=== PATIENT | female | born 1970 | race African-American/Black ===

== ENCOUNTER 2018-02-03 16:58 | Inpatient (IN) | payer MEDICARE ==
[~2018-02-03] VITALS: Ht 175.3 cm; Wt 94.3 kg
[~2018-02-03 16:58] MED LIST: COLACE100 MG ORAL; CYCLOBENZAPRINE10 MG ORAL; CYMBALTA60 MG ORAL; Cyclobenzaprine 10mg Tab ORAL PRN; LYRICA200 MG ORAL; METHADONE H5 MG/5 M1 PO; METHADONE HCL5 MG PO; NORCO 5-325 TA1 EACH ORAL; SOMA350 MG PO; TYLENOL WITH C1 EAC1 ORAL
[2018-02-03 17:37] VITALS: BP 173/124
--- NOTE | 2018-02-03 17:38 | Emergency Room Report ---
History of Present Illness General Chief Complaint: Back Pain-No Injury Present Illness HPI 47 yo female patient presents to ER complaining of breakthrough back pain x1 week. Patient denies hx of trauma or accident recently. Reports needed to use walker for the past week; unable to walk standing up, pain relief with hunching over. Reports pain radiates down left leg to knee. Reports sees physical therapy but was unable to drive and missed appointments past week; states pain symptoms worsened at that time. Reports hx of chronic back pain; seen by pain management and treated with [place] 7.5/325mg and Soma; reports took 2 [place] and 1 Soma this morning for pain. Reports hx of two back surgeries in 2010; does not recall reason for surgeries; reports possible "thye cut something out and put rods in". Denies weight loss. Denies IV drug use. Denies bowel or bladder incontinence or retention. Denies . Denies nausea, vomiting, chest pain, SOB, abdominal pain, dysuria, hematuria. Denies hx of HTN or cardiovascular disease. (Adams Brink P.A.) Allergies: Coded Allergies: No Known Allergies (Unverified , 05/07/15) Patient History Past Medical History: see triage record Last Menstrual Period: 3 weeks ago Reviewed Nursing Documentation: PMH: Agreed, PSxH: Agreed (Adams Brink P.A.) Nursing Documentation-PMH Hx Hypertension: No Hx Diabetes: No Hx Gastrointestinal Problems: Yes - bowel blokage Hx Neurological Problems: No - BACK SURGERIES in 2010, 2012 (Adams Brink P.A.) Review of Systems All Other Systems: negative except mentioned in HPI (Adams Brink P.A.) Physical Exam Vital Signs Date Time Temp Pulse Resp B/P (MAP) Pulse Ox O2 Delivery O2 Flow Rate FiO2 02/03/18 17:06 98.5 110 20 173/124 99 Room Air 98.4 Sp02 EP Interpretation: reviewed, normal General Appearance: well appearing, alert, GCS 15, non-toxic, mild distress Head: normocephalic, atraumatic Eyes: bilateral eye normal inspection, bilateral eye PERRL ENT: hearing grossly normal, normal pharynx, no angioedema, normal voice, uvula midline, moist mucus membranes Neck: full range of motion Respiratory: lungs clear, normal breath sounds, no rhonchi, no respiratory distress, no accessory muscle use, no wheezing, speaking full sentences Cardiovascular #1: regular rate, rhythm, no edema Musculoskeletal: back normal, digits/nails normal, normal range of motion, non- tender Psychiatric: anxious Skin: no rash (Adams Brink) Medical Decision Making PA Attestation Dr. Hernandez is my supervising Physician whom patient management has been discussed with. (Adams Brink) Diagnostic Impression: Primary Impression: Elevated blood pressure reading Additional Impression: Intractable back pain ER Course Pt presents to ED c/o chronic back pain. DDX considered but are not limited to sprain, strain, cauda equina, stenosis, spinal cord compression, kidney stones, cystitis, pyelonephritis. Low suspicion for cauda equina, no bowel or bladder incontinence or retention. No fever, nontoxic appearing, low suspicion for epidural mass. PE: pain worsens with leg straightening, relieved with knee straightening. No calf pain or swelling. Denies recent trauma. Reports blood pressure always elevated. Patient reports self-diagnosed whitecoat HTN. In mild acute distress secondary to pain. Will order CT, no imaging does recently. VITAL SIGNS are WNL, patient is afebrile. BP elevated. Ordered pain medication, imaging, UA and urine . CURES shows patient has not received mediation since beginning of December 2017. Previous prescriptions were filled monthly by same physician. Patient reports followup appointment with pain management this week. ER COURSE: Toradol, Decadron, and morphine for pain. BP still elevated, ordered Norvasc 5mg. Patient seen and evaluated by Dr. Hernandez, agrees with treatment plan. CT lumbar spine results show no acute fracture, show surgical changes at L3-L4, degenerative changes, and previous bowel surgery. Discuss results with patient. Inform patient to followup with ortho for MRI. Followup with pain management at appointment scheduled on February 07 for further treatment and pain medication. Followup with primary care provider for elevated blood pressure reading. Patient complaining of muscle spasm returning. Ordered Robaxin. Patient reports Aunt will drive her home. Rx provided for Robaxin and Lidocaine patch. Followup with pain management. Patient stable for discharge to home. Patient reports Aunt will drive her home. Patient questions asked and answered. Patient reports understanding and agreement to treatment plan. ER precautions given. Awaiting patient UA and urine to check for possible infection. Treat for UTI if infection present. Recheck blood pressure. Patient signed out to Dr. Hernandez. (Adams Brink) ER Course Patient was endorsed to me by physician dental office assistant. Patient was noted to have severe back pain which is unrelieved by medications. Patient was given muscle relaxants without any improvement in muscle spasm and inability to ambulate. Patient was initially thought to be okay for discharge however she continued to have severe pain which would make discharge unsafe. Patient was discussed with Dr. dunham for inpatient management Labs Test 02/03/18 20:50 02/03/18 22:45 Urine Color Yellow Urine Appearance Clear Urine pH 7 (4.5-8.0) Urine Specific [place] 1.005 (1.005-1.035) Urine Protein Negative (NEGATIVE) Urine Glucose (UA) Negative (NEGATIVE) Urine Ketones 1+ (NEGATIVE) Urine Occult Blood Negative (NEGATIVE) Urine Nitrite Negative (NEGATIVE) Urine Bilirubin Negative (NEGATIVE) Urine Urobilinogen Normal MG/DL (0.0-1.0) Urine Leukocyte Esterase Negative (NEGATIVE) Urine HCG, Qualitative Negative White Blood Count 6.2 K/UL (4.8-10.8) Red Blood Count 5.56 M/UL (4.20-5.40) Hemoglobin 14.1 G/DL (12.0-16.0) Hematocrit 43.4 % (37.0-47.0) Mean Corpuscular Volume 78 FL (80-99) Mean Corpuscular Hemoglobin 25.3 PG (27.0-31.0) Mean Corpuscular Hemoglobin Concent 32.4 G/DL (32.0-36.0) Red Cell Distribution Width 13.7 % (11.6-14.8) Platelet Count 234 K/UL (150-450) Mean Platelet Volume 8.7 FL (6.5-10.1) Neutrophils (%) (Auto) % (45.0-75.0) Lymphocytes (%) (Auto) % (20.0-45.0) Monocytes (%) (Auto) % (1.0-10.0) Eosinophils (%) (Auto) % (0.0-3.0) Basophils (%) (Auto) % (0.0-2.0) (Sunny Hernandez) CT/MRI/US Diagnostic Results CT/MRI/US Diagnostic Results : Imaging Test Ordered: CT lumbar spine Impression [facility] No acute fracture or malalignment. Surgical changes at L3 - 4. Degenerative changes. Previous bowel surgery. (Adams Brink) Last Vital Signs Date Time Temp Pulse Resp B/P (MAP) Pulse Ox O2 Delivery O2 Flow Rate FiO2 02/03/18 17:09 98.5 110 18 173/124 98 Room Air 98.4 (Adams Brink) Status: unchanged (Sunny Hernandez) Disposition: ADMITTED INPATIENT Condition: Serious Scripts Lidocaine (Lidocaine) 1 Each Adh..patch 700 MG TP DAILY for 5 Days, #5 PATCH Prov: Adams Brink 02/03/18 Methocarbamol* (ROBAXIN*) 500 Mg Tablet 500 MG PO TID, #15 TAB 0 Refills Prov: Adams Brink 02/03/18 Patient Instructions: Back Pain, Adult, Hypertension, [id number] Additional Instructions: Followup with pain management at appointment scheduled on February 07 for further treatment and pain medication. Followup with primary care provider for elevated blood pressure reading. Discuss treatment and referral at that time. Take medications as directed. Robaxin may cause drowsiness, do not take while drinking, driving, or operating heavy machinery. Patient questions asked and answered. ER precautions given. Return to ER immediately for any new or worsening of symptoms including but not limited to fever, chest pain, SOB, neck pain, vision changes. Adams Brink Feb 03, 2018 17:38 Sunny Hernandez Feb 03, 2018 23:34
[2018-02-03] MEDS ORDERED: Ketorolac 30mg Inj IM ONE (18:00)
[2018-02-03] MEDS ORDERED: Dexamethasone 4mg/ml vial IVP ONE (18:00)
[2018-02-03] MEDS ORDERED: Morphine Sulfate 4mg/ml Inj IVP ONE ×2 (18:00→22:00)
[2018-02-03 20:26] VITALS: BP 170/108
[2018-02-03] MEDS ORDERED: Methocarbamol 750mg tab ORAL ONE (20:30)
[2018-02-03] MEDS ORDERED: LIDOCAINE700 M1 TP (21:02)
[2018-02-03] MEDS ORDERED: ROBAXIN500 MG PO (21:02)
[2018-02-03 21:31] LABS: APPEARANCE,URINE CLEAR; BILIRUBIN, URINE NEGATIVE (NEGATIVE); COLOR,URINE YELLOW; GLUCOSE, URINE (UA) NEGATIVE (NEGATIVE); KETONES,URINE 1+ (NEGATIVE); LEUKOCYTE ESTERASE ,URINE NEGATIVE (NEGATIVE); NITRITE,URINE NEGATIVE (NEGATIVE); PH,URINE 7 (4.5-8.0); PROTEIN,URINE NEGATIVE (NEGATIVE); UROBILINOGEN,URINE NORMAL MG/DL (0.0-1.0)
[2018-02-03 21:44] VITALS: BP 157/106
[2018-02-03 23:17] LABS: HEMATOCRIT 43.4 % (37.0-47.0); HEMOGLOBIN 14.1 G/DL (12.0-16.0); MEAN CORPUSCULAR VOLUME 78 FL (80-99); PLATELET COUNT 234 K/UL (150-450); RED BLOOD COUNT 5.56 M/UL (4.20-5.40); RED CELL DISTRIBUTION WIDTH 13.7 % (11.6-14.8); WHITE BLOOD COUNT 6.2 K/UL (4.8-10.8)
[2018-02-03 23:30] LABS: ANION GAP 9 mmol/L (5-15); BLOOD UREA NITROGEN 9 mg/dL (7-18); CALCIUM 9.6 MG/DL (8.5-10.1); CARBON DIOXIDE 25 MMOL/L (21-32); CHLORIDE 104 MMOL/L (98-107); POTASSIUM 4.1 MMOL/L (3.5-5.1); SODIUM 138 MMOL/L (136-145)
[2018-02-03 23:35] LABS: ALANINE AMINOTRANSFERASE 22 U/L (12-78); ALKALINE PHOSPHATASE 149 U/L (46-116); ASPARTATE AMINO TRANSFERASE 23 U/L (15-37); BILIRUBIN,TOTAL 0.4 MG/DL (0.2-1.0)
[2018-02-03] MEDS ORDERED: Morphine Sulfate 2mg/ml Inj IVP PRN (23:45)
[2018-02-03] MEDS ORDERED: Miralax 17gm pkt ORAL PRN (23:45)
[2018-02-03] MEDS ORDERED: Zolpidem 5mg tab ORAL PRN (23:45)
[2018-02-03] MEDS ORDERED: Mylanta II UD 30ml ORAL PRN (23:45)
[2018-02-03] MEDS ORDERED: Norco 5mg/325mg tab ORAL PRN (23:45)
[2018-02-03] MEDS ORDERED: LORazepam Inj 2mg/ml 1ml IV PRN (23:45)
[2018-02-04] VITALS (7 sets, daily range): BP systolic 131–159; BP diastolic 85–100
[2018-02-04] MEDS: Morphine Sulfate 4mg/ml Inj IVP PRN ×2 (01:47→06:08)
[2018-02-04 07:36] LABS: BASOPHILS % (AUTO) 0.8 % (0.0-2.0); EOSINOPHILS % (AUTO) 0.3 % (0.0-3.0); HEMATOCRIT 37.7 % (37.0-47.0); HEMOGLOBIN 12.2 G/DL (12.0-16.0); LYMPHOCYTES % (AUTO) 19.7 % (20.0-45.0); MEAN CORPUSCULAR VOLUME 79 FL (80-99); MONOCYTES % (AUTO) 9.5 % (1.0-10.0); NEUTROPHILS % (AUTO) 69.8 % (45.0-75.0); PLATELET COUNT 218 K/UL (150-450); RED BLOOD COUNT 4.79 M/UL (4.20-5.40); RED CELL DISTRIBUTION WIDTH 13.6 % (11.6-14.8); WHITE BLOOD COUNT 6.5 K/UL (4.8-10.8)
[2018-02-04 07:46] LABS: ALANINE AMINOTRANSFERASE 19 U/L (12-78); ALBUMIN 3.2 G/DL (3.4-5.0); ALBUMIN/GLOBULIN RATIO 0.9 (1.0-2.7); ALKALINE PHOSPHATASE 122 U/L (46-116); ANION GAP 10 mmol/L (5-15); ASPARTATE AMINO TRANSFERASE 20 U/L (15-37); BILIRUBIN,TOTAL 0.4 MG/DL (0.2-1.0); BLOOD UREA NITROGEN 8 mg/dL (7-18); CALCIUM 8.8 MG/DL (8.5-10.1); CARBON DIOXIDE 23 MMOL/L (21-32); CHLORIDE 104 MMOL/L (98-107); CREATININE 0.9 MG/DL (0.55-1.30); POTASSIUM 4.2 MMOL/L (3.5-5.1); SODIUM 137 MMOL/L (136-145)
--- NOTE | 2018-02-04 08:47 | Consultation ---
History of Present Illness General Date patient seen: Feb 04, 2018 Chief Complaint: Present Illness Allergies: Coded Allergies: No Known Allergies (Unverified , 05/07/15) Medication History Scheduled Docusate Sodium* (Colace*), 100 MG ORAL TWICE A DAY Duloxetine Hcl* (Cymbalta*), 60 MG ORAL DAILY, (Reported) Lidocaine (Lidocaine), 700 MG TP DAILY Methadone Hcl (Methadone Hcl), 5 MG PO QID, (Reported) Methocarbamol* (Robaxin*), 500 MG PO TID Pregabalin (Lyrica), 200 MG ORAL THREE TIMES A DAY, (Reported) Scheduled PRN Acetaminophen/Codeine (T#4) (Tylenol With Codeine #4 Tablet*), 1 TAB ORAL Q6H PRN for For Pain Carisoprodol* (Soma*), 350 MG PO Q6H PRN for For Pain, (Reported) Cyclobenzaprine Hcl* (Flexeril*), 10 MG ORAL TID PRN for Muscle Spasm Hydrocodone Bit/Acetaminophen 5-325* ([place] 5-325*), 1 TAB ORAL Q6H PRN for For Pain Hydrocodone Bit/Acetaminophen 5-325* ([place] 5-325*), 1 TAB ORAL Q6H PRN for For Pain Patient History Healthcare decision maker Resuscitation status Full Code Advanced Directive on File No Physical Exam Last 24 Hour Vital Signs Date Time Temp Pulse Resp B/P (MAP) Pulse Ox O2 Delivery O2 Flow Rate FiO2 02/04/18 04:01 97.9 94 18 141/90 99 Room Air 97.9 02/04/18 02:17 97.7 02/04/18 01:47 97.7 02/04/18 01:03 97.7 86 16 152/87 99 Room Air 97.7 02/04/18 00:20 98.5 85 17 149/88 100 Room Air 98.5 02/04/18 00:19 98.5 85 17 149/88 100 Room Air 98.5 02/04/18 00:12 98.5 85 17 159/100 100 Room Air 98.5 02/03/18 22:28 98.6 02/03/18 21:58 98.6 02/03/18 21:44 98.6 94 18 157/106 100 Room Air 98.6 02/03/18 20:26 98.5 80 13 170/108 98 Room Air 98.5 02/03/18 20:23 80 170/108 02/03/18 18:14 98.5 02/03/18 18:08 98.5 02/03/18 17:37 110 18 173/124 98 Room Air 02/03/18 17:09 98.5 110 18 173/124 98 Room Air 98.4 02/03/18 17:06 98.5 110 20 173/124 99 Room Air 98.4 Intake and Output 02/03/18 02/04/18 19:00 07:00 Intake Total 0 ml 460 ml Balance 0 ml 460 ml Intake Oral 0 ml 460 ml # Voids 2 Laboratory Tests Test 02/03/18 20:50 02/03/18 22:45 02/04/18 05:35 Urine Color Yellow Urine Appearance Clear Urine pH 7 (4.5-8.0) Urine Specific [place] 1.005 (1.005-1.035) Urine Protein Negative (NEGATIVE) Urine Glucose (UA) Negative (NEGATIVE) Urine Ketones 1+ (NEGATIVE) H Urine Occult Blood Negative (NEGATIVE) Urine Nitrite Negative (NEGATIVE) Urine Bilirubin Negative (NEGATIVE) Urine Urobilinogen Normal MG/DL (0.0-1.0) Urine Leukocyte Esterase Negative (NEGATIVE) Urine HCG, Qualitative Negative White Blood Count 6.2 K/UL (4.8-10.8) 6.5 K/UL (4.8-10.8) Red Blood Count 5.56 M/UL (4.20-5.40) H 4.79 M/UL (4.20-5.40) Hemoglobin 14.1 G/DL (12.0-16.0) 12.2 G/DL (12.0-16.0) Hematocrit 43.4 % (37.0-47.0) 37.7 % (37.0-47.0) Mean Corpuscular Volume 78 FL (80-99) L 79 FL (80-99) L Mean Corpuscular Hemoglobin 25.3 PG (27.0-31.0) L 25.5 PG (27.0-31.0) L Mean Corpuscular Hemoglobin Concent 32.4 G/DL (32.0-36.0) 32.4 G/DL (32.0-36.0) Red Cell Distribution Width 13.7 % (11.6-14.8) 13.6 % (11.6-14.8) Platelet Count 234 K/UL (150-450) 218 K/UL (150-450) Mean Platelet Volume 8.7 FL (6.5-10.1) 8.3 FL (6.5-10.1) Neutrophils (%) (Auto) % (45.0-75.0) 69.8 % (45.0-75.0) Lymphocytes (%) (Auto) % (20.0-45.0) 19.7 % (20.0-45.0) L Monocytes (%) (Auto) % (1.0-10.0) 9.5 % (1.0-10.0) Eosinophils (%) (Auto) % (0.0-3.0) 0.3 % (0.0-3.0) Basophils (%) (Auto) % (0.0-2.0) 0.8 % (0.0-2.0) Erythrocyte Sedimentation Rate 4 MM/HR (0-20) Sodium Level 138 MMOL/L (136-145) 137 MMOL/L (136-145) Potassium Level 4.1 MMOL/L (3.5-5.1) 4.2 MMOL/L (3.5-5.1) Chloride Level 104 MMOL/L (98-107) 104 MMOL/L (98-107) Carbon Dioxide Level 25 MMOL/L (21-32) 23 MMOL/L (21-32) Anion Gap 9 mmol/L (5-15) 10 mmol/L (5-15) Blood Urea Nitrogen 9 mg/dL (7-18) 8 mg/dL (7-18) Creatinine 1.0 MG/DL (0.55-1.30) 0.9 MG/DL (0.55-1.30) Estimat Glomerular Filtration Rate > 60 mL/min (>60) > 60 mL/min (>60) Glucose Level 108 MG/DL (74-106) H 94 MG/DL (74-106) Calcium Level 9.6 MG/DL (8.5-10.1) 8.8 MG/DL (8.5-10.1) Total Bilirubin 0.4 MG/DL (0.2-1.0) 0.4 MG/DL (0.2-1.0) Aspartate Amino Transf (AST/SGOT) 23 U/L (15-37) 20 U/L (15-37) Alanine Aminotransferase (ALT/SGPT) 22 U/L (12-78) 19 U/L (12-78) Alkaline Phosphatase 149 U/L (46-116) H 122 U/L (46-116) H Total Protein 7.9 G/DL (6.4-8.2) 6.6 G/DL (6.4-8.2) Albumin 4.0 G/DL (3.4-5.0) 3.2 G/DL (3.4-5.0) L Globulin 3.9 g/dL 3.4 g/dL Albumin/Globulin Ratio 1.0 (1.0-2.7) 0.9 (1.0-2.7) L Lipase 65 U/L (73-393) L Thyroid Stimulating Hormone (TSH) 2.072 uiU/mL (0.358-3.740) Height (Feet): 5 Height (Inches): 9.00 Weight (Pounds): 208 Medications Current Medications Medications (Trade) Dose Ordered Sig/Breanna Route PRN Reason Start Time Stop Time Status Last Admin Dose Admin Acetaminophen (Tylenol) 650 mg Q4H PRN ORAL fever 02/03/18 23:45 03/05/18 23:44 Acetaminophen/ Hydrocodone Bitart ([place] 5/325) 1 tab Q6H PRN ORAL For Pain 02/03/18 23:45 02/10/18 23:44 Al Hydroxide/Mg Hydroxide (Mylanta II) 30 ml Q6H PRN ORAL dyspepsia 02/03/18 23:45 03/05/18 23:44 Carisoprodol (Soma) 350 mg Q6H PRN ORAL For Pain 02/03/18 23:45 03/05/18 23:44 UNV Cyclobenzaprine HCl (Flexeril) 10 mg TID PRN ORAL Muscle Spasm 02/03/18 23:45 03/05/18 23:44 UNV Dextrose (Dextrose 50%) STAT PRN IV Hypoglycemia 02/03/18 23:45 03/05/18 23:44 Docusate Sodium (Colace) 100 mg TWICE A DAY ORAL 02/04/18 09:00 03/06/18 08:59 Duloxetine HCl (Cymbalta) 60 mg DAILY ORAL 02/04/18 09:00 03/06/18 08:59 Heparin Sodium (Porcine) (Heparin 5000 units/ml) 5,000 units EVERY 12 HOURS SUBQ 02/04/18 09:00 03/06/18 08:59 Lidocaine (Lidoderm 5% PATCH) 1 patch DAILY TDERMAL 02/03/18 18:00 03/05/18 17:59 02/03/18 19:16 Lorazepam (Ativan 2mg/ml 1ml) 0.5 mg Q4H PRN IV For Anxiety 02/03/18 23:45 02/10/18 23:44 02/04/18 03:09 Methocarbamol (Robaxin) 500 mg TID@0900,1500,2100 ORAL 02/04/18 09:00 03/06/18 08:59 Morphine Sulfate (Morphine Sulfate) 2 mg Q4H PRN IVP For Pain 4-6 02/03/18 23:45 02/10/18 23:44 Morphine Sulfate (Morphine Sulfate) 4 mg Q4H PRN IVP For Pain 7-10 02/03/18 23:45 02/10/18 23:44 02/04/18 06:08 Ondansetron HCl (Zofran) 4 mg Q6H PRN IVP Nausea & Vomiting 02/03/18 23:45 03/05/18 23:44 Polyethylene Glycol (Miralax) 17 gm HSPRN PRN ORAL Constipation 02/03/18 23:45 03/05/18 23:44 Zolpidem Tartrate (Ambien) 5 mg HSPRN PRN ORAL Insomnia 02/03/18 23:45 02/10/18 23:44 Assessment/Plan Assessment/Plan (1) Lumbar DDD (2) Lumbar Spondylosis (3) Lumbar Herniated disc (4) Lumbar Radiculopathy (5) H/o Lumbar fusion seen EVA Pierson Feb 04, 2018 08:47
[2018-02-04] MEDS ORDERED: DULoxetine 30mg cap ORAL SCH (09:00)
[2018-02-04] MEDS ORDERED: Heparin 5000 units/ml inj SUBQ SCH (09:00)
[2018-02-04] MEDS: Methocarbamol 500mg tab ORAL SCH ×2 (09:04→14:42)
[2018-02-04] MEDS: Docusate 100mg cap ORAL SCH ×2 (09:04→17:57)
--- NOTE | 2018-02-04 09:16 | Diagnostic Imaging Report ---
Indications: Back pain Technique: Spiral acquisitions obtained through the lumbar spine. Multiplanar reconstructions were generated. No IV contrast utilized. Total dose length product 844 mGycm. CTDIvol(s) 25.42 mGy. Dose reduction achieved using automated exposure control Comparison: No comparison lumbar spine CT. Reference is made to prior abdomen and pelvis CT dated 02/06/2016 Findings: Patient is status post surgical fusion of L3 and L4. There appears to be complete ankylosis of the disc as well as of the facets. There is good alignment of the surgical hardware. No acute fractures. No dislocations. Bony alignment is normal. Vertebral body heights are preserved. There is degenerative disc narrowing at L4-5. 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 There is circumferential annular bulge resulting in mild spinal stenosis at L3-4. There is circumferential annular bulge which does not result in significant spinal stenosis at L4-5. There is evidence of prior L4 right hemilaminotomy. The included extra spinal soft tissues are unremarkable except for surgical anastomotic filiberto in the left lower quadrant small bowel and a surgical clip in the pelvis. Impression: No acute bony trauma Post surgical changes, as described Degenerative changes, as described Evidence of prior bowel surgery This agrees with the preliminary interpretation provided overnight by [facility] teleradiology service. The CT scanner at [facility] is accredited by the [employer] and the scans are performed using protocols designed to limit radiation exposure to as low as reasonably achievable to attain images of sufficient resolution adequate for diagnostic evaluation.
[2018-02-04] MEDS ORDERED: Cyclobenzaprine 10mg Tab ORAL PRN (14:45)
--- NOTE | 2018-02-04 17:56 | History and Physical ---
History of Present Illness General Date patient seen: Feb 04, 2018 Reason for Hospitalization: Back Pain-No Injury Present Illness HPI 47 yo female patient with hx of back surgery twice presents to ER complaining of breakthrough back pain x1 week. She has hx of chronic back pain; seen by pain management and treated with [place] 7.5/325mg and Soma; reports took 2 Tamiment and 1 Soma this morning for pain. Pt is admitted for intractable back pain Allergies: Coded Allergies: No Known Allergies (Unverified , 05/07/15) Medication History Scheduled Docusate Sodium* (Colace*), 100 MG ORAL TWICE A DAY Duloxetine Hcl* (Cymbalta*), 60 MG ORAL DAILY, (Reported) Lidocaine (Lidocaine), 700 MG TP DAILY Methadone Hcl (Methadone Hcl), 5 MG PO QID, (Reported) Methocarbamol* (Robaxin*), 500 MG PO TID Pregabalin (Lyrica), 200 MG ORAL THREE TIMES A DAY, (Reported) Scheduled PRN Acetaminophen/Codeine (T#4) (Tylenol With Codeine #4 Tablet*), 1 TAB ORAL Q6H PRN for For Pain Carisoprodol* (Soma*), 350 MG PO Q6H PRN for For Pain, (Reported) Cyclobenzaprine Hcl* (Flexeril*), 10 MG ORAL TID PRN for Muscle Spasm Hydrocodone Bit/Acetaminophen 5-325* ([place]am[place] 5-325*), 1 TAB ORAL Q6H PRN for For Pain Hydrocodone Bit/Acetaminophen 5-325* ([place] 5-325*), 1 TAB ORAL Q6H PRN for For Pain Patient History Healthcare decision maker Resuscitation status Full Code Advanced Directive on File No Past Medical/Surgical History Past Medical/Surgical History: (1) Anemia Review of Systems All Other Systems: negative except mentioned in HPI Physical Exam General Appearance: WD/WN Lines, tubes and drains: peripheral HEENT: normocephalic Neck: non-tender Respiratory/Chest: chest wall non-tender, lungs clear Breasts: no masses Abdomen: normal bowel sounds Genitourinary/Rectal: normal genital exam Last 24 Hour Vital Signs Date Time Temp Pulse Resp B/P (MAP) Pulse Ox O2 Delivery O2 Flow Rate FiO2 02/04/18 12:00 97.7 84 20 149/89 98 Room Air 97.7 02/04/18 08:00 98.1 82 19 134/85 100 Room Air 98.1 02/04/18 04:01 97.9 94 18 141/90 99 Room Air 97.9 02/04/18 02:17 97.7 02/04/18 01:47 97.7 02/04/18 01:03 97.7 86 16 152/87 99 Room Air 97.7 02/04/18 00:20 98.5 85 17 149/88 100 Room Air 98.5 02/04/18 00:19 98.5 85 17 149/88 100 Room Air 98.5 02/04/18 00:12 98.5 85 17 159/100 100 Room Air 98.5 02/03/18 22:28 98.6 02/03/18 21:58 98.6 02/03/18 21:44 98.6 94 18 157/106 100 Room Air 98.6 02/03/18 20:26 98.5 80 13 170/108 98 Room Air 98.5 02/03/18 20:23 80 170/108 02/03/18 18:14 98.5 02/03/18 18:08 98.5 Intake and Output 02/03/18 02/04/18 19:00 07:00 Intake Total 0 ml 460 ml Balance 0 ml 460 ml Intake Oral 0 ml 460 ml # Voids 2 Laboratory Tests Test 02/03/18 20:50 02/03/18 22:45 02/04/18 05:35 Urine Color Yellow Urine Appearance Clear Urine pH 7 (4.5-8.0) Urine Specific [place] 1.005 (1.005-1.035) Urine Protein Negative (NEGATIVE) Urine Glucose (UA) Negative (NEGATIVE) Urine Ketones 1+ (NEGATIVE) H Urine Occult Blood Negative (NEGATIVE) Urine Nitrite Negative (NEGATIVE) Urine Bilirubin Negative (NEGATIVE) Urine Urobilinogen Normal MG/DL (0.0-1.0) Urine Leukocyte Esterase Negative (NEGATIVE) Urine HCG, Qualitative Negative White Blood Count 6.2 K/UL (4.8-10.8) 6.5 K/UL (4.8-10.8) Red Blood Count 5.56 M/UL (4.20-5.40) H 4.79 M/UL (4.20-5.40) Hemoglobin 14.1 G/DL (12.0-16.0) 12.2 G/DL (12.0-16.0) Hematocrit 43.4 % (37.0-47.0) 37.7 % (37.0-47.0) Mean Corpuscular Volume 78 FL (80-99) L 79 FL (80-99) L Mean Corpuscular Hemoglobin 25.3 PG (27.0-31.0) L 25.5 PG (27.0-31.0) L Mean Corpuscular Hemoglobin Concent 32.4 G/DL (32.0-36.0) 32.4 G/DL (32.0-36.0) Red Cell Distribution Width 13.7 % (11.6-14.8) 13.6 % (11.6-14.8) Platelet Count 234 K/UL (150-450) 218 K/UL (150-450) Mean Platelet Volume 8.7 FL (6.5-10.1) 8.3 FL (6.5-10.1) Neutrophils (%) (Auto) % (45.0-75.0) 69.8 % (45.0-75.0) Lymphocytes (%) (Auto) % (20.0-45.0) 19.7 % (20.0-45.0) L Monocytes (%) (Auto) % (1.0-10.0) 9.5 % (1.0-10.0) Eosinophils (%) (Auto) % (0.0-3.0) 0.3 % (0.0-3.0) Basophils (%) (Auto) % (0.0-2.0) 0.8 % (0.0-2.0) Erythrocyte Sedimentation Rate 4 MM/HR (0-20) Sodium Level 138 MMOL/L (136-145) 137 MMOL/L (136-145) Potassium Level 4.1 MMOL/L (3.5-5.1) 4.2 MMOL/L (3.5-5.1) Chloride Level 104 MMOL/L (98-107) 104 MMOL/L (98-107) Carbon Dioxide Level 25 MMOL/L (21-32) 23 MMOL/L (21-32) Anion Gap 9 mmol/L (5-15) 10 mmol/L (5-15) Blood Urea Nitrogen 9 mg/dL (7-18) 8 mg/dL (7-18) Creatinine 1.0 MG/DL (0.55-1.30) 0.9 MG/DL (0.55-1.30) Estimat Glomerular Filtration Rate > 60 mL/min (>60) > 60 mL/min (>60) Glucose Level 108 MG/DL (74-106) H 94 MG/DL (74-106) Calcium Level 9.6 MG/DL (8.5-10.1) 8.8 MG/DL (8.5-10.1) Total Bilirubin 0.4 MG/DL (0.2-1.0) 0.4 MG/DL (0.2-1.0) Aspartate Amino Transf (AST/SGOT) 23 U/L (15-37) 20 U/L (15-37) Alanine Aminotransferase (ALT/SGPT) 22 U/L (12-78) 19 U/L (12-78) Alkaline Phosphatase 149 U/L (46-116) H 122 U/L (46-116) H Total Protein 7.9 G/DL (6.4-8.2) 6.6 G/DL (6.4-8.2) Albumin 4.0 G/DL (3.4-5.0) 3.2 G/DL (3.4-5.0) L Globulin 3.9 g/dL 3.4 g/dL Albumin/Globulin Ratio 1.0 (1.0-2.7) 0.9 (1.0-2.7) L Lipase 65 U/L (73-393) L Thyroid Stimulating Hormone (TSH) 2.072 uiU/mL (0.358-3.740) Height (Feet): 5 Height (Inches): 9.00 Weight (Pounds): 208 Medications Current Medications Medications (Trade) Dose Ordered Sig/Breanna Route PRN Reason Start Time Stop Time Status Last Admin Dose Admin Acetaminophen (Tylenol) 650 mg Q4H PRN ORAL fever 02/03/18 23:45 03/05/18 23:44 Acetaminophen/ Hydrocodone Bitart (Tamiment 5/325) 1 tab Q6H PRN ORAL For Pain 02/03/18 23:45 02/10/18 23:44 Al Hydroxide/Mg Hydroxide (Mylanta II) 30 ml Q6H PRN ORAL dyspepsia 02/03/18 23:45 03/05/18 23:44 Carisoprodol (Soma) 350 mg Q6H PRN ORAL Muscle spasm 3rd line 02/03/18 15:00 03/05/18 14:59 Cyclobenzaprine HCl (Flexeril) 10 mg Q8H PRN ORAL Muscle Spasm 02/04/18 14:45 03/05/18 14:59 Dextrose (Dextrose 50%) STAT PRN IV Hypoglycemia 02/03/18 23:45 03/05/18 23:44 Docusate Sodium (Colace) 100 mg TWICE A DAY ORAL 02/04/18 09:00 03/06/18 08:59 02/04/18 09:04 Duloxetine HCl (Cymbalta) 60 mg DAILY ORAL 02/04/18 09:00 03/06/18 08:59 02/04/18 09:04 Heparin Sodium (Porcine) (Heparin 5000 units/ml) 5,000 units EVERY 12 HOURS SUBQ 02/04/18 09:00 03/06/18 08:59 02/04/18 09:04 Lidocaine (Lidoderm 5% PATCH) 1 patch DAILY TDERMAL 02/03/18 18:00 03/05/18 17:59 02/04/18 09:11 Lorazepam (Ativan 2mg/ml 1ml) 0.5 mg Q4H PRN IV For Anxiety 02/03/18 23:45 02/10/18 23:44 02/04/18 03:09 Methocarbamol (Robaxin) 500 mg TID@0900,1500,2100 ORAL 02/04/18 09:00 03/06/18 08:59 02/04/18 14:42 Morphine Sulfate (Morphine Sulfate) 2 mg Q4H PRN IVP For Pain 4-6 02/03/18 23:45 02/10/18 23:44 Morphine Sulfate (Morphine Sulfate) 4 mg Q4H PRN IVP For Pain 7-10 02/03/18 23:45 02/10/18 23:44 02/04/18 06:08 Ondansetron HCl (Zofran) 4 mg Q6H PRN IVP Nausea & Vomiting 02/03/18 23:45 03/05/18 23:44 02/04/18 12:53 Polyethylene Glycol (Miralax) 17 gm HSPRN PRN ORAL Constipation 02/03/18 23:45 03/05/18 23:44 Zolpidem Tartrate (Ambien) 5 mg HSPRN PRN ORAL Insomnia 02/03/18 23:45 02/10/18 23:44 Assessment/Plan Problem List: (1) Intractable back pain ICD Codes: M54.9 - Dorsalgia, unspecified SNOMED: [id number] Assessment/Plan pain consult iv narcotics pt/ot MICHAEL BURNS Feb 04, 2018 17:56
[2018-02-04] MEDS ORDERED: Lyrica 50mg cap ORAL SCH (19:45)
--- NOTE | 2018-02-04 23:30 | Consultation ---
DATE OF CONSULTATION: 02/04/2018 PAIN MANAGEMENT CONSULTATION CONSULTING PHYSICIAN: Sam Marcelino M.D. PHYSICIAN PULMONARY PHYSICAL THERAPIST: Amy Hunter REFERRING PHYSICIAN: Robyn Grant M.D. CHIEF COMPLAINT: Low back pain. HISTORY OF PRESENT ILLNESS: The patient is a 47-year-old female who is being seen on the Medical/Surgical floor of [facility] for initial comprehensive pain management consultation. The patient reports that she has been having chronic low back pain since 2004. It is a constant, chronic pain, rating it at 10/10. At this time describing the pain as a sharp, radiating to bilateral lower extremities, increasing with movement and nothing has been helping to relieve the pain. As an outpatient, she takes Beverly and seeing a pain specialists, receiving epidural injections, and had a recent MRI. CT scan was done upon admission to the hospital, found to have circumferential annular bulge L3-L4 with circumferential annular bulge and it does not result in significant spinal stenosis at L4-L5, evidence of prior L4 right hemilaminotomy with lumbar fusion from L3 to L4. She has been reporting that she has been having breakthrough pain, admitted to the hospital, started on morphine 2 to 4 mg IV every 4 hours as needed for moderate to severe pain, Beverly 5/325 mg one tablet every six hours as needed for mild pain. The patient is comfortable at this time, no acute distress, and has no other complaints. PAST MEDICAL HISTORY: Denies. PAST SURGICAL HISTORY: Lumbar surgery, gastric bypass. SOCIAL HISTORY: She is a smoker of marijuana. Denies smoking tobacco, drinking alcohol, no IV drug abuse. ALLERGIES: No known drug allergies. MEDICATIONS: Colace, Cymbalta, lidocaine, Robaxin, Lyrica, Beverly, and Soma. REVIEW OF SYSTEMS: Denies rash, fever, chills, sweating, dizziness, drowsiness, blurred vision, sore throat, or change in weight. No shortness of breath or chest pain. No nausea, vomiting, or blood in the stool or urine. No bowel or bladder incontinence. No dysuria. She is complaining of low back pain. PHYSICAL EXAMINATION: GENERAL: Alert, awake, and oriented x3. VITAL SIGNS: Blood pressure 141/90, heart rate is 94, oxygen saturation 99%, respiratory rate is 18, and temperature is 97.9 degrees Fahrenheit. HEENT: PERRLA. NECK: Range of motion is full in all directions. No tenderness to paracervical muscles. No adenopathy. LUNGS: Decreased breath sounds bilaterally. ABDOMEN: Obese. BACK: Range of motion is decreased in flexion and extension with surgical scar noted in the midline of lumbar spine. EXTREMITIES: Upper extremity range of motion is full in all directions. Motor is intact. No cyanosis. No clubbing. No edema. Sensory is intact. Reflexes are not obtainable. No adenopathy. Lower extremity range of motion is decreased due to the patient's pain and condition. No cyanosis. No clubbing. Sensory is reduced. Reflexes are unobtainable. No adenopathy. ASSESSMENT AND PLAN: This is a 47-year-old female with lumbar degenerative disk disease, lumbar spondylosis, lumbar herniated disc, lumbar radiculopathy, history of lumbar fusion. The patient will be continued on morphine and Beverly and will be started on Lyrica 100 mg t.i.d. The patient was discussed with Dr. Marcelino and Dr. Marcelino concurred. We will follow the patient. Thank you very much for the courtesy of this consultation. Sam Marcelino M.D. ABIDA Hunter DR: Kaye JOB#: [id number] CC: [email or web address]
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
--- NOTE | 2018-02-06 09:51 | Discharge Summary ---
Discharge Summary Hospital Course Date of Admission Feb 03, 2018 at 23:14 Date of Discharge Feb 04, 2018 at 19:40 Admitting Diagnosis intractable back pain HPI Ruperto Lott is a 47 year old female who was admitted on Feb 03, 2018 at 23:14 for Intractable Back Pain Hospital Course dc summary #[id number] Discharge Medications Continued Medications: Carisoprodol* (Soma*) 350 Mg Tablet 350 MG PO Q6H PRN for For Pain, TAB Cyclobenzaprine Hcl* (Flexeril*) 10 Mg Tablet 10 MG ORAL TID PRN for Muscle Spasm, #20 TAB Docusate Sodium* (Colace*) 100 Mg Capsule 100 MG ORAL TWICE A DAY, #30 CAP Hydrocodone Bit/Acetaminophen 5-325* ([place] 5-325*) 1 Each Tablet 1 TAB ORAL Q6H PRN for For Pain, #20 TAB 0 Refills Lidocaine (Lidocaine) 1 Each Adh..patch 700 MG TP DAILY for 5 Days, #5 PATCH Methocarbamol* (Robaxin*) 500 Mg Tablet 500 MG PO TID, #15 TAB 0 Refills Discharge Condition Upon Discharge: stable Discharge Disposition Patient was discharged to Home (01) Discharge Diagnoses: Discharge Instructions Discharge Instructions Special Instructions I have been assigned to complete a D/C Summary on this account. I was not involved in the patient management Romi Payne NP ([place]te[place]) Feb 06, 2018 09:51
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
== END 2018-02-04 19:40 | disposition home or self-care (01) | DRG 552 ==
LOC: EMR 18:11 → 4W 23:14 → EDBEDREQ 23:14
DX: M51.16 Intervertebral disc disorders with radiculopathy, lumbar region (principal); I10 Essential (primary) hypertension; Z98.84 Bariatric surgery status; F32.9 Major depressive disorder, single episode, unspecified; M47.896 Other spondylosis, lumbar region; Z98.1 Arthrodesis status
CPT/HCPCS: 36415; 72131; 80053; 81003; 81025; 83690; 84443; 85025; 85651; 96372; 96374; 96375; 99284; J2405

== ENCOUNTER 2018-07-03 16:36 | Emergency (ER) | payer MEDICARE ==
[~2018-07-03] VITALS: Ht 175.3 cm; Wt 95.3 kg
[~2018-07-03 16:36] MED LIST changes: -Cyclobenzaprine 10mg Tab ORAL PRN; +LIDOCAINE700 M1 TP; +ROBAXIN500 MG PO
[2018-07-03] MEDS ORDERED: Ketorolac 30mg Inj IV ONE (17:15)
[2018-07-03] MEDS ORDERED: Morphine Sulfate 4mg/ml Inj (IV USE ONLY) IVP ONE (17:15)
[2018-07-03 17:38] VITALS: BP 162/111
[2018-07-03 18:07] LABS: BASOPHILS % (AUTO) 1.3 % (0.0-2.0); HEMATOCRIT 46.5 % (37.0-47.0); HEMOGLOBIN 14.7 G/DL (12.0-16.0); LYMPHOCYTES % (AUTO) 15.5 % (20.0-45.0); MEAN CORPUSCULAR VOLUME 83 FL (80-99); MONOCYTES % (AUTO) 4.6 % (1.0-10.0); NEUTROPHILS % (AUTO) 77.6 % (45.0-75.0); PLATELET COUNT 225 K/UL (150-450); RED BLOOD COUNT 5.61 M/UL (4.20-5.40); RED CELL DISTRIBUTION WIDTH 15.6 % (11.6-14.8); WHITE BLOOD COUNT 7.2 K/UL (4.8-10.8)
[2018-07-03 18:13] LABS: ANION GAP 13 mmol/L (5-15); BLOOD UREA NITROGEN 8 mg/dL (7-18); CALCIUM 9.9 MG/DL (8.5-10.1); CARBON DIOXIDE 23 MMOL/L (21-32); CHLORIDE 99 MMOL/L (98-107); CREATININE 0.9 MG/DL (0.55-1.30); SODIUM 134 MMOL/L (136-145)
[2018-07-03 18:18] LABS: ALANINE AMINOTRANSFERASE 29 U/L (12-78); ALBUMIN 4.2 G/DL (3.4-5.0); ALBUMIN/GLOBULIN RATIO 1.1 (1.0-2.7); ALKALINE PHOSPHATASE 126 U/L (46-116); ASPARTATE AMINO TRANSFERASE 48 U/L (15-37); BILIRUBIN,TOTAL 0.5 MG/DL (0.2-1.0)
[2018-07-03 18:22] LABS: APPEARANCE,URINE CLEAR; BILIRUBIN, URINE NEGATIVE (NEGATIVE); COLOR,URINE PALE YELLOW; GLUCOSE, URINE (UA) NEGATIVE (NEGATIVE); KETONES,URINE 1+ (NEGATIVE); LEUKOCYTE ESTERASE ,URINE NEGATIVE (NEGATIVE); NITRITE,URINE NEGATIVE (NEGATIVE); PH,URINE 7 (4.5-8.0); PROTEIN,URINE NEGATIVE (NEGATIVE); UROBILINOGEN,URINE NORMAL MG/DL (0.0-1.0)
[2018-07-03] MEDS ORDERED: fentaNYL 100 mcg/2 mL IV ONE (19:00)
[2018-07-03 20:23] VITALS: BP 165/101
--- NOTE | 2018-07-03 21:55 | Emergency Room Report ---
History of Present Illness General Chief Complaint: Pain Source: Patient Present Illness HPI Several days of L lower back and hip pain. Denies trauma. Has had 2 back surgeries 8 years ago. Pain rated 10/10, burning and radiating down L leg. States she has been taking [place] without help. States problems with inability to sleep due to pain. Having trouble walking. No incontinence, fevers, blood thinners. Has weakness and numbness of her L leg and foot which has been this severe in the past. No dysuria. Seen by her PMD and had hip x-rays done which were allegedly normal. Had epidural which has not helped (states it usually doesn't). Uses walker. On antidepressants. Denies SI or HI. Frustrated at lack of pain control. On soma. On lyrica. Takes ativan on occasion for anxiety. This also recently. Post gastric bypass with multiple complications. Seen here for similar pain but bilaterally. Admitted in January for pain control and elevated BP. D/C Dx: 1. Intractable back pain. 2. Elevated blood pressure reading. 3. Major depressive disorder. 4. Lumbar degenerative disk disease. 5. Lumbar spondylosis. 6. Lumbar herniated disk. 7. Lumbar radiculopathy. 8. History of lumbar fusion. Allergies: Coded Allergies: No Known Allergies (Unverified , 05/07/15) Patient History Past Medical History: see triage record Past Surgical History: other - 2 back surgeries/fusion, gastric bypass, intecessuption, pnemothorax, renal failure Social History: Reports: smoking, drug use - THC; Denies: alcohol use Social History Narrative at home with dog Reviewed Nursing Documentation: PMH: Agreed; PSxH: Agreed Nursing Documentation-PMH Hx Cardiac Problems: No Hx Hypertension: No Hx Diabetes: No Hx Cancer: No Hx Gastrointestinal Problems: Yes - bowel blokage Hx Neurological Problems: No - BACK SURGERIES in 2010, 2012 Review of Systems All Other Systems: negative except mentioned in HPI Physical Exam Vital Signs Date Time Temp Pulse Resp B/P (MAP) Pulse Ox O2 Delivery O2 Flow Rate FiO2 07/03/18 16:49 98.0 120 18 162/111 98 Room Air 98.1 Sp02 EP Interpretation: reviewed, normal General Appearance: well appearing, no apparent distress - but in pain, GCS 15 Head: normocephalic Eyes: bilateral eye normal inspection, bilateral eye PERRL ENT: moist mucus membranes Neck: supple Respiratory: lungs clear, normal breath sounds Cardiovascular #1: regular rate, rhythm Cardiovascular #2: 2+ radial (R) Gastrointestinal: normal inspection, normal bowel sounds, non tender, no mass, non-distended Genitourinary: no CVA tenderness Musculoskeletal: digits/nails normal, no calf tenderness, pelvis stable, decreased range of motion, other - no hip tendernee, tender - L lumbar area, not bony, no crossover pain, SLR + at 30 degrees Neurologic: alert, oriented x3, DTRs symmetric, sensory intact, cerebellar normal, speech normal, no Babinski, motor weakness - L big toe and dorsiflexion Psychiatric: no suicidal/homicidal ideation, depressed affect Reflexes: 2+ knee (R), 2+ knee (L), 2+ ankle (R), 2+ ankle (L) Skin: normal inspection, no rash, warm/dry Medical Decision Making Diagnostic Impression: Primary Impression: Sciatica Qualified Codes: M54.32 - Sciatica, left side Additional Impression: Chronic pain Qualified Codes: G89.29 - Other chronic pain ER Course Patient with worsened L back pain. DDx; exacerbation of chronic pain, sciatica , UTI, muscle spasms amongst others. CT recent and repeat not indicated. No red flag signs or symptoms. Evaluation with labs. Treatment with IV analgesics. Labs normal CBC. CMP unremarkable. UA clear. Prior CT of back reviewed. Impression: No acute bony trauma Post surgical changes, as described Degenerative changes, as described Evidence of prior bowel surgery Min improvement after initial dose of analgesics. Fentanyl ordered. Improved and smiling, still with pain. Ambulatory. Discussed chronic pain with patient and need for follow up with her MD and chronic pain MD. Patient stable for outpatient observation and treatment. Laboratory Tests Test 07/03/18 17:40 07/03/18 17:50 White Blood Count 7.2 K/UL (4.8-10.8) Red Blood Count 5.61 M/UL (4.20-5.40) H Hemoglobin 14.7 G/DL (12.0-16.0) Hematocrit 46.5 % (37.0-47.0) Mean Corpuscular Volume 83 FL (80-99) Mean Corpuscular Hemoglobin 26.1 PG (27.0-31.0) L Mean Corpuscular Hemoglobin Concent 31.5 G/DL (32.0-36.0) L Red Cell Distribution Width 15.6 % (11.6-14.8) H Platelet Count 225 K/UL (150-450) Mean Platelet Volume 8.4 FL (6.5-10.1) Neutrophils (%) (Auto) 77.6 % (45.0-75.0) H Lymphocytes (%) (Auto) 15.5 % (20.0-45.0) L Monocytes (%) (Auto) 4.6 % (1.0-10.0) Eosinophils (%) (Auto) 1.0 % (0.0-3.0) Basophils (%) (Auto) 1.3 % (0.0-2.0) Prothrombin Time 10.6 SEC (9.30-11.50) Prothrombin Time INR 1.0 (0.9-1.1) PTT 23 SEC (23-33) Sodium Level 134 MMOL/L (136-145) L Potassium Level 5.0 MMOL/L (3.5-5.1) Chloride Level 99 MMOL/L (98-107) Carbon Dioxide Level 23 MMOL/L (21-32) Anion Gap 13 mmol/L (5-15) Blood Urea Nitrogen 8 mg/dL (7-18) Creatinine 0.9 MG/DL (0.55-1.30) Estimate Glomerular Filtration Rate > 60 mL/min (>60) Glucose Level 99 MG/DL (74-106) Calcium Level 9.9 MG/DL (8.5-10.1) Total Bilirubin 0.5 MG/DL (0.2-1.0) Aspartate Amino Transferase (AST) 48 U/L (15-37) H Alanine Aminotransferase (ALT) 29 U/L (12-78) Alkaline Phosphatase 126 U/L (46-116) H Total Protein 8.1 G/DL (6.4-8.2) Albumin 4.2 G/DL (3.4-5.0) Globulin 3.9 g/dL Albumin/Globulin Ratio 1.1 (1.0-2.7) Urine Color Pale yellow Urine Appearance Clear Urine pH 7 (4.5-8.0) Urine Specific [place] 1.010 (1.005-1.035) Urine Protein Negative (NEGATIVE) Urine Glucose (UA) Negative (NEGATIVE) Urine Ketones 1+ (NEGATIVE) H Urine Occult Blood Negative (NEGATIVE) Urine Nitrite Negative (NEGATIVE) Urine Bilirubin Negative (NEGATIVE) Urine Urobilinogen Normal MG/DL (0.0-1.0) Urine Leukocyte Esterase Negative (NEGATIVE) Urine HCG, Qualitative Negative (NEGATIVE) Urine Opiates Screen Negative (NEGATIVE) Urine Barbiturates Screen Negative (NEGATIVE) Phencyclidine (PCP) Screen Negative (NEGATIVE) Urine Amphetamines Screen Negative (NEGATIVE) Urine Benzodiazepines Screen Negative (NEGATIVE) Urine Cocaine Screen Negative (NEGATIVE) Urine Marijuana (THC) Screen Positive (NEGATIVE) H Last Vital Signs Date Time Temp Pulse Resp B/P (MAP) Pulse Ox O2 Delivery O2 Flow Rate FiO2 07/03/18 22:43 0/0 07/03/18 22:04 97.7 07/03/18 20:23 84 16 99 Room Air 165/101 Status: improved Disposition: HOME, SELF-CARE Condition: Improved Scripts Oxycodone/Acetaminophen 5-325* (PERCOCET 5-325 MG TABLET*) 1 Each Tablet 1 TAB ORAL Q4H PRN for For Pain, #6 TAB 0 Refills Prov: Cortez Dominguez M.D. 07/03/18 Referrals: NON PHYSICIAN (PCP) Cortez Dominguez M.D. Jul 03, 2018 21:55
[2018-07-03] MEDS ORDERED: PERCOCET 5-3251 EACH ORAL (21:57)
[2018-07-03] MEDS ORDERED: oxyCODONE HCL/Acetaminophen 5/325mg ORAL ONE (22:00)
[2018-07-03 22:43] VITALS: BP 0/0
== END 2018-07-03 22:43 | disposition home or self-care (01) ==
LOC: EMR 17:30
DX: M54.32 Sciatica, left side (principal)
CPT/HCPCS: 36415; 80053; 80307; 81003; 81025; 85025; 85610; 85730; 96361; 96374; 96375; 99284; J1885; J2270; J2405; J3010

== ENCOUNTER 2020-08-12 19:07 | Emergency (ER) | payer MEDICARE ==
[~2020-08-12] VITALS: Ht 175.3 cm; Wt 78.0 kg
[~2020-08-12 19:07] MED LIST changes: +PERCOCET 5-3251 EACH ORAL
--- NOTE | 2020-08-12 19:15 | NUR ---
ED Nurse Note: walked in to ed c/o mid abd pain onset 2 wks ago 04/04. pt also states chest soreness 03/05. vss, nad, aaox4 ,ambulatory, ermd at bedside, on anesthesia associate.
--- NOTE | 2020-08-12 19:30 | NUR ---
ED Nurse Note: blood and urine collected and sent to lab. ekg done at bedside.
[2020-08-12] MEDS ORDERED: Morphine Sulfate 2mg/ml Inj(IV/IM USE ONLY) IVP ONE (19:45)
[2020-08-12] MEDS ORDERED: Omnipaque-300 100ml vial INJ PRN (19:45)
[2020-08-12 20:03] LABS: APPEARANCE,URINE CLEAR; BILIRUBIN, URINE NEGATIVE (NEGATIVE); GLUCOSE, URINE (UA) NEGATIVE (NEGATIVE); KETONES,URINE NEGATIVE (NEGATIVE); LEUKOCYTE ESTERASE ,URINE NEGATIVE (NEGATIVE); NITRITE,URINE NEGATIVE (NEGATIVE); PH,URINE 6.5 (4.5-8.0); PROTEIN,URINE NEGATIVE (NEGATIVE); UROBILINOGEN,URINE 4 MG/DL (0.0-1.0)
[2020-08-12 20:06] VITALS: BP 147/97
[2020-08-12 20:07] LABS: COLOR,URINE YELLOW
[2020-08-12 20:10] LABS: ANION GAP 10 mmol/L (5-15); BLOOD UREA NITROGEN 9 mg/dL (7-18); CALCIUM 8.6 MG/DL (8.5-10.1); CARBON DIOXIDE 27 MMOL/L (21-32); CHLORIDE 107 MMOL/L (98-107); SODIUM 144 MMOL/L (136-145)
[2020-08-12 20:12] LABS: BASOPHILS % (AUTO) 1.1 % (0.0-2.0); EOSINOPHILS % (AUTO) 1.2 % (0.0-3.0); HEMATOCRIT 41.3 % (37.0-47.0); LYMPHOCYTES % (AUTO) 34.5 % (20.0-45.0); MEAN CORPUSCULAR VOLUME 88 FL (80-99); MONOCYTES % (AUTO) 6.5 % (1.0-10.0); NEUTROPHILS % (AUTO) 56.7 % (45.0-75.0); PLATELET COUNT 178 K/UL (150-450); RED BLOOD COUNT 4.72 M/UL (4.20-5.40); RED CELL DISTRIBUTION WIDTH 14.1 % (11.6-14.8); WHITE BLOOD COUNT 6.9 K/UL (4.8-10.8)
[2020-08-12 20:14] LABS: ALANINE AMINOTRANSFERASE 26 U/L (12-78); ALBUMIN 4.1 G/DL (3.4-5.0); ALBUMIN/GLOBULIN RATIO 1.3 (1.0-2.7); ALKALINE PHOSPHATASE 89 U/L (46-116); ASPARTATE AMINO TRANSFERASE 28 U/L (15-37); BILIRUBIN,TOTAL 0.5 MG/DL (0.2-1.0)
--- NOTE | 2020-08-12 20:15 | NUR ---
ED Nurse Note: pt went for ct
--- NOTE | 2020-08-12 20:38 | NUR ---
ED Nurse Note: pt back from ct
--- NOTE | 2020-08-12 20:52 | Diagnostic Imaging Report ---
EXAM: CT Abdomen and Pelvis With Intravenous Contrast CLINICAL HISTORY: ABD PAIN TECHNIQUE: Axial computed tomography images of the abdomen and pelvis with intravenous contrast. CTDI is 7.2 mGy and DLP is 415 mGy-cm. One or more of the following dose reduction techniques were used: automated exposure control, adjustment of the mA and/or kV according to patient size, use of iterative reconstruction technique. Coronal and sagittal reformatted images were created and reviewed. COMPARISON: Prior 02/06/2016 FINDINGS: Lung bases: Unremarkable. No mass. No consolidation. ABDOMEN: Liver: Unremarkable. No mass. Gallbladder and bile ducts: Dilated gallbladder without additional findings to suggest acute cholecystitis, correlate with presentation. Pancreas: Unremarkable. No mass. No ductal dilation. Spleen: Unremarkable. No splenomegaly. Adrenals: Unremarkable. No mass. Kidneys and ureters: Unremarkable. No solid mass. No hydronephrosis. Stomach and bowel: Large colonic fecal burden and small bowel fecal contents could be incidental or could represent slow intestinal transit and could be a cause of pain. No mucosal thickening. PELVIS: Appendix: No findings to suggest acute appendicitis. Bladder: Urinary bladder wall thickening could be incidental, due to high outlet pressures, or could represent cystitis. Reproductive: Unremarkable as visualized. ABDOMEN and PELVIS: Intraperitoneal space: Extensive abdominal operative findings in the left hemiabdomen. No free air. No significant fluid collection. Bones/joints: Bilateral L3-L4 posterior stabilization hardware with interbody spacer. Degenerative disc findings. L2-L3 and L4-L5. No acute fracture. No dislocation. Soft tissues: Unremarkable. Vasculature: Unremarkable. No abdominal aortic aneurysm. Lymph nodes: Unremarkable. No enlarged lymph nodes. IMPRESSION: 1. Dilated gallbladder without additional findings to suggest acute cholecystitis, correlate with presentation. 2. Large colonic fecal burden and small bowel fecal contents could be incidental or could represent slow intestinal transit and could be a cause of pain. 3. Urinary bladder wall thickening could be incidental, due to high outlet pressures, or could represent cystitis. 4. Otherwise no acute abnormality definitively identified to account for patient presentation. 5. Extensive abdominal operative findings in the left hemiabdomen.
[2020-08-12] MEDS ORDERED: Ketorolac 30mg Inj IV ONE (21:15)
[2020-08-12] MEDS ORDERED: Dicyclomine HCl 10mg/5ml oral soln ORAL ONE (21:15)
[2020-08-12] MEDS ORDERED: NORCO 5-325 TA1 EAC1 ORAL (21:28)
[2020-08-12] MEDS ORDERED: DICYCLOMINE HCL10 MG ORAL (21:28)
[2020-08-12 21:40] VITALS: BP 133/71
--- NOTE | 2020-08-12 21:40 | NUR ---
ED Nurse Note: Pt cleared by ERMD for discharge. DC instructions/prescription was given and explained to pt and verbalized understanding of teachings. All medical deviecs such as ID band and IV line removed. Pt is AAO x4, ambulatory and left with all personal belongings. P/u by family member.
--- NOTE | 2020-08-17 06:59 | Emergency Room Report ---
History of Present Illness General Chief Complaint: Chest Pain Source: Patient Present Illness HPI Patient is a 50-year-old female presents for increased chest pain and abdominal pain. Prior history of bariatric surgery. Patient had onset of symptoms approximately 2 weeks ago when she began having abdominal pain. Had subsequently developed some chest discomfort yesterday. Pain was constant. Described as an aching pain. Prior history of bariatric surgery as well as bowel obstruction. Denies any vomiting. Had not been having any exertional chest pain. Denies any leg pain or swelling. No recent surgical procedures. 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 Patient History Past Medical History: see triage record Last Menstrual Period: NA post-menopausal Now: No : 0 Para: 0 Reviewed Nursing Documentation: PMH: Agreed; PSxH: Agreed Nursing Documentation-PMH Hx Cardiac Problems: No Hx Hypertension: No Hx Diabetes: No Hx Cancer: No Hx Gastrointestinal Problems: Yes - gastric bypass Hx Neurological Problems: No - BACK SURGERIES in 2010, 2012 Review of Systems All Other Systems: negative except mentioned in HPI Physical Exam Sp02 EP Interpretation: reviewed, normal General Appearance: normal inspection, well appearing, no apparent distress, alert, GCS 15 Head: atraumatic ENT: normal ENT inspection, hearing grossly normal, normal voice Neck: normal inspection, full range of motion, supple, no bony tend Respiratory: normal inspection, lungs clear, normal breath sounds, no respiratory distress, no retraction, no wheezing Cardiovascular #1: regular rate, rhythm, no edema Gastrointestinal: normal inspection, normal bowel sounds, non tender, soft, no guarding, no hernia Genitourinary: no CVA tenderness Musculoskeletal: normal inspection, back normal, normal range of motion Neurologic: alert, motor strength/tone normal, oriented x3, responsive, speech normal, normal inspection Psychiatric: normal inspection, judgement/insight normal, mood/affect normal Medical Decision Making Diagnostic Impression: Primary Impression: Nonspecific abdominal pain ER Course Patient presented for abdominal pain. Differential diagnosis include was not limited to bowel obstruction, pneumonia, myocardial infarction, anemia among others. Because of complexity of patient's case laboratory tests and imaging studies were ordered. Patient's laboratory testing showed normal white blood count as well as no evidence of significant anemia. Patient was given IV fluids as well as pain medication. EKG showed normal sinus rhythm without acute ST or T wave changes. Chest x-ray was unremarkable. Patient's laboratory testing showed negative troponin given the patient's time course this effectively rules out for VT. Does not have any definite cardiac risk. Patient was advised to have outpatient cardiac work-up. Patient is agreeable with discharge plan. The patient is advised to follow up with primary care doctor in 1-2 days. Patient is advised to return if any worsening condition or if any changes in status that are concerning. This report is dictated with [employer] board stacker software which may occasionally lead to discrepancies related to use of this software. Labs Test 08/12/20 19:30 White Blood Count 6.9 K/UL (4.8-10.8) Red Blood Count 4.72 M/UL (4.20-5.40) Hemoglobin 13.0 G/DL (12.0-16.0) Hematocrit 41.3 % (37.0-47.0) Mean Corpuscular Volume 88 FL (80-99) Mean Corpuscular Hemoglobin 27.7 PG (27.0-31.0) Mean Corpuscular Hemoglobin Concent 31.5 G/DL (32.0-36.0) Red Cell Distribution Width 14.1 % (11.6-14.8) Platelet Count 178 K/UL (150-450) Mean Platelet Volume 8.6 FL (6.5-10.1) Neutrophils (%) (Auto) 56.7 % (45.0-75.0) Lymphocytes (%) (Auto) 34.5 % (20.0-45.0) Monocytes (%) (Auto) 6.5 % (1.0-10.0) Eosinophils (%) (Auto) 1.2 % (0.0-3.0) Basophils (%) (Auto) 1.1 % (0.0-2.0) Prothrombin Time 11.0 SEC (9.30-11.50) Prothromb Time International Ratio 1.0 (0.9-1.1) Activated Partial Thromboplast Time 23 SEC (23-33) Urine Color Yellow Urine Appearance Clear Urine pH 6.5 (4.5-8.0) Urine Specific [place] 1.010 (1.005-1.035) Urine Protein Negative (NEGATIVE) Urine Glucose (UA) Negative (NEGATIVE) Urine Ketones Negative (NEGATIVE) Urine Blood Negative (NEGATIVE) Urine Nitrite Negative (NEGATIVE) Urine Bilirubin Negative (NEGATIVE) Urine Urobilinogen 4 MG/DL (0.0-1.0) Urine Leukocyte Esterase Negative (NEGATIVE) Sodium Level 144 MMOL/L (136-145) Potassium Level 4.0 MMOL/L (3.5-5.1) Chloride Level 107 MMOL/L (98-107) Carbon Dioxide Level 27 MMOL/L (21-32) Anion Gap 10 mmol/L (5-15) Blood Urea Nitrogen 9 mg/dL (7-18) Creatinine 1.0 MG/DL (0.55-1.30) Estimat Glomerular Filtration Rate > 60 mL/min (>60) Glucose Level 91 MG/DL (74-106) Calcium Level 8.6 MG/DL (8.5-10.1) Total Bilirubin 0.5 MG/DL (0.2-1.0) Aspartate Amino Transf (AST/SGOT) 28 U/L (15-37) Alanine Aminotransferase (ALT/SGPT) 26 U/L (12-78) Alkaline Phosphatase 89 U/L (46-116) Troponin I 0.000 ng/mL (0.000-0.056) Total Protein 7.3 G/DL (6.4-8.2) Albumin 4.1 G/DL (3.4-5.0) Globulin 3.2 g/dL Albumin/Globulin Ratio 1.3 (1.0-2.7) Lipase 105 U/L (73-393) EKG Diagnostic Results Rate: normal Rhythm: NSR ST Segments: no acute changes Status: improved Disposition: HOME, SELF-CARE Condition: Stable Scripts Hydrocodone Bit/Acetaminophen 5-325* (NORCO 5-325 TABLET*) 1 Each Tablet 1 TAB ORAL Q6H PRN for FOR PAIN, #10 TAB 0 Refills Prov: Sunny Hernandez MD 08/12/20 Dicyclomine Hcl* (DICYCLOMINE HCL*) 10 Mg Capsule 10 MG ORAL QID, #20 CAP Prov: Sunyn Hernandez MD 08/12/20 Referrals: NON PHYSICIAN (PCP) Patient Instructions: Nonspecific Chest Pain Additional Instructions: Follow up with your doctor for recheck. Return if worse. Sunny Hernandez MD Aug 17, 2020 06:59
== END 2020-08-12 21:55 | disposition home or self-care (01) ==
LOC: EMR 21:04
DX: R10.9 Unspecified abdominal pain (principal); R07.9 Chest pain, unspecified; Z98.84 Bariatric surgery status
CPT/HCPCS: 36415; 74177; 80053; 81003; 83690; 84484; 85025; 85610; 85730; 86850; 86900; 86901; 93005; 96374; 96375; 99284; J1885; J2270; J2405; J7040; Q9965